=== PATIENT | male | born 1970 | race African-American/Black ===

== ENCOUNTER 2020-12-11 07:24 | Emergency (ER) | payer MEDICAID, OTHER ==
[~2020-12-11] VITALS: Ht 177.8 cm; Wt 65.8 kg
[2020-12-11] MEDS ORDERED: ONDANSETRON HCL 4 MG/2 ML VIAL IV ONE (08:00)
[2020-12-11] MEDS ORDERED: SODIUM CHLORIDE 0.9% 1,000 ML IV ONE ×2 (08:00)
[2020-12-11] MEDS ORDERED: MORPHINE SULFATE 4 MG/ML SYR/VIAL IV ONE (08:00)
[2020-12-11 08:53] LABS: Hematocrit 19.4 % (41.0-53.0); Mean Corpuscular Hemoglobin 36.3 pg (28.0-32.0); Mean Corpuscular Volume 100.9 fL (80.0-100.0); Red Blood Cells 1.93 10^6/uL (4.5-5.90); Red Cell Distribution Width 19.4 % (11.8-14.3); White Blood Cell 7.5 10^3/uL (4.4-10.8)
[2020-12-11 09:03] LABS: Basophils % (manual) 0 (0.0-2.0); Blast Cells 0; Eosinophils % (manual) 0 (0-7); Metamyelocytes % 0; Myelocytes % 0; Promyelocytes % 0; Reactive Lymphocytes 0
[2020-12-11 09:14] LABS: BUN/Creatinine Ratio 7.9; Calcium 8.5 mg/dL (8.5-10.1); Potassium 4.5 mmol/L (3.5-5.1)
[2020-12-11] MEDS ORDERED: FERROUS SULFATE 325mg EC TAB PO ONE ×2 (09:15)
[2020-12-11 09:16] LABS: Bilirubin, Total 1.3 mg/dL (0.2-1.0)
[2020-12-11 09:24] LABS: Band Neutrophils % (manual) 5; Lymphocytes % (manual) 31 (10.0-50.0); Monocytes % (manual) 10 (0-12)
[2020-12-11 10:32] VITALS: BP 120/78
== END 2020-12-11 10:34 | disposition home or self-care (01) ==
LOC: ER 07:24
DX: D57.00 Hb-SS disease with crisis, unspecified (principal); F17.210 Nicotine dependence, cigarettes, uncomplicated; F12.10 Cannabis abuse, uncomplicated; Z90.49 Acquired absence of other specified parts of digestive tract; Z90.89 Acquired absence of other organs
CPT/HCPCS: 36415; 80053; 85007; 85027; 85045; 93005; 96361; 96374; 96375; 99284; J2270; J2405; J7030